=== PATIENT | female | born 1980 | race Two or more races ===

== ENCOUNTER 2016-12-07 11:59 | Emergency (ER) | payer OTHER ==
[~2016-12-07] VITALS: Ht 170.2 cm; Wt 68.0 kg
[~2016-12-07 11:59] MED LIST: FLUO40CA2 PO; LAMO200T4 PO
[2016-12-07] MEDS ORDERED: HYDROmorphone 1 MG/ML, 1ML ONE (12:14)
[2016-12-07] MEDS: HYDROmorphone 1 MG/ML, 1ML IVPush PRN ×3 (12:17→16:50)
[2016-12-07] MEDS ORDERED: ONDANSETRON 2MG/ML, 2ML IVPush ONE (12:30)
[2016-12-07] MEDS ORDERED: SODIUM CHLORIDE 0.9% 1,000ML IVBOLUS ONE (12:30)
[2016-12-07] MEDS ORDERED: SODIUM CHLORIDE FLUSH 10ML SYR IVF ONE (12:30)
[2016-12-07 12:47] LABS: HEMOGLOBIN 11.9 g/dL (11.7-16.4)
[2016-12-07] MEDS ORDERED: FLUO10CA13 PO (12:54)
[2016-12-07 13:01] LABS: BLOOD UREA NITROGEN 22 mg/dL (7-18)
[2016-12-07] MEDS ORDERED: SODIUM CHLORIDE 0.9%, 500ML IVBOLUS ONE ×2 (13:30→16:00)
[2016-12-07 15:43] LABS: HEMOGLOBIN 11.5 g/dL (11.7-16.4)
[2016-12-07 16:10] VITALS: BP 91/50
== END 2016-12-07 16:55 ==
LOC: ED 14:57
DX: O03.9 Complete or unspecified spontaneous abortion without complication (principal); I95.9 Hypotension, unspecified
CPT/HCPCS: 36415; 76856; 80048; 82040; 84702; 85025; 86901; 96361; 96374; 99285; J1170; J7030; J7040

== ENCOUNTER 2017-06-13 15:33 | Day surgery (SDC) | payer OTHER ==
[~2017-06-13] VITALS: Ht 171.4 cm; Wt 69.3 kg
[~2017-06-13 15:33] MED LIST changes: +FLUO10CA13 PO
[2017-06-13] MEDS ORDERED: LACTATED RINGERS 1,000 ML IV SCH (15:49)
[2017-06-13] MEDS ORDERED: PREN1COM15 PO (15:56)
[2017-06-13 15:59] VITALS: BP 104/62
[2017-06-13] MEDS ORDERED: PLEASE ENTER HEIGHT AND WEIGHT MC SCH (16:00)
[2017-06-13 16:17] LABS: HEMATOCRIT 41.1 % (34.6-47.8); WHITE BLOOD COUNT 9.7 x10^3/uL (3.4-10)
[2017-06-13 16:30] LABS: BLOOD UREA NITROGEN 12 mg/dL (7-18)
[2017-06-13] MEDS ORDERED: BUPIVACAINE/PF 0.25% ONE (16:31)
[2017-06-13] MEDS ORDERED: EPINEPHRINE 1 MG/ML, 1ML ONE (16:32)
[2017-06-13 16:33] LABS: ASPARTATE AMINO TRANSFERASE 16 U/L (15-37)
[2017-06-13 16:42] LABS: HCG UR LOT HCG7030192
[2017-06-13] MEDS ORDERED: MIDAZOLAM 1 MG/ML, 2ML ONE (16:42)
[2017-06-13] MEDS ORDERED: FENTANYL PF 100 MCG/2ML ONE ×3 (16:43→18:34)
[2017-06-13] MEDS ORDERED: LIDOCAINE-MPF 2% ,5ML ONE ×2 (16:44→17:46)
[2017-06-13] MEDS ORDERED: ROCURONIUM 10 MG/ML ONE ×2 (16:45)
[2017-06-13] MEDS ORDERED: KETOROLAC 30 MG/1 ML ONE (16:45)
[2017-06-13 17:02] LABS: HCG UR OBC PASS
[2017-06-13] MEDS ORDERED: CEFAZOLIN 1,000 MG ONE (17:06)
[2017-06-13] MEDS ORDERED: ONDANSETRON 2MG/ML, 2ML ONE (17:06)
[2017-06-13] MEDS ORDERED: SUCCINYLCHOLINE 20 MG/ML, 10ML ONE (17:06)
[2017-06-13] MEDS ORDERED: PROPOFOL 10 MG/ML, 20ML ONE (17:06)
[2017-06-13] MEDS ORDERED: GLYCOPYRROLATE 0.2MG/1ML, 5ML ONE (17:06)
[2017-06-13] MEDS ORDERED: NEOSTIGMINE 1 MG/ML, 10ML ONE (17:06)
[2017-06-13] MEDS ORDERED: DEXAMETHASONE 4 MG/ML, 1ML ONE (17:06)
[2017-06-13] MEDS ORDERED: EPHEDRINE 50 MG/ML, 1ML ONE (17:07)
[2017-06-13] MEDS ORDERED: MIDAZOLAM 1 MG/ML, 2ML IV PRN (17:30)
[2017-06-13] MEDS ORDERED: DIAZEPAM 5 MG/ML, 2ML IVPush PRN (17:30)
[2017-06-13] MEDS ORDERED: HYDROmorphone 1 MG/ML, 1ML IV PRN (17:30)
[2017-06-13] MEDS ORDERED: OXYcodone 5 MG/5 ML ORAL.SOL UDC PO PRN ×2 (17:30→21:00)
[2017-06-13] MEDS ORDERED: LABETALOL 5MG/ML, 20ML IV PRN (17:30)
[2017-06-13] MEDS ORDERED: LORazepam 2 MG/ML, 1ML IVPush PRN (17:30)
[2017-06-13] MEDS ORDERED: MEPERIDINE/PF 25MG/0.5ML IVPush PRN (17:30)
[2017-06-13] MEDS ORDERED: hydrALAzine 20 MG/ML, 1ML IV PRN (17:30)
[2017-06-13] MEDS ORDERED: ONDANSETRON 2MG/ML, 2ML IVPush PRN (17:30)
[2017-06-13] MEDS ORDERED: FENTANYL PF 100 MCG/2ML IV PRN (17:30)
[2017-06-13] MEDS ORDERED: EPHEDRINE 50 MG/ML, 1ML IVPush PRN (17:30)
[2017-06-13] MEDS ORDERED: ACETAMINOPHEN 325 MG TABLET PO PRN (17:30)
[2017-06-13] MEDS ORDERED: ALBUTEROL/IPRATROPIUM 2.5MG/0.5MG, 3 ML NPPB PRN (17:30)
[2017-06-13] MEDS ORDERED: PROMETHAZINE 25 MG/ML, 1ML IV PRN (17:30)
[2017-06-13] MEDS ORDERED: OXYcodone 5 MG/5 ML ORAL.SOL UDC ONE (18:34)
[2017-06-13] MEDS ORDERED: ACETAMINOPHEN 650 MG/20.3 ML UDC ONE (18:34)
[2017-06-13] MEDS ORDERED: OXYcodone/APAP 5/325MG TABLET PO PRN (21:00)
[2017-06-13] MEDS ORDERED: morphine SULFATE 10 MG/ML, 1ML IV PRN (21:00)
[2017-06-13] MEDS ORDERED: FLUOXETINE 10 MG CAP PO SCH (21:00)
[2017-06-13] MEDS ORDERED: IBUPROFEN 600 MG TABLET PO SCH (21:00)
[2017-06-14] MEDS ORDERED: OXYC-302 PO (08:32)
[2017-06-14] MEDS ORDERED: PRENATAL VIT/IRON/FA 1 EACH TABLET PO SCH (09:00)
== END 2017-06-13 23:40 | disposition home or self-care (01) ==
LOC: OR 15:33 → MERGE 18:00 → 4NOR 19:42 → OR 23:40
PROVIDERS: ATTEND Obstetrics & Gynecology
DX: O00.102 Left tubal pregnancy without intrauterine pregnancy (principal); N83.201 Unspecified ovarian cyst, right side
CPT/HCPCS: 36415; 59151; 80053; 81025; 85025; 86850; 86900; 88302; J0171; J0330; J0690; J1100; J1885; J2250; J2405; J2704; J2710; J3010; J3490

== ENCOUNTER 2018-07-01 20:07 | Emergency (ER) | payer OTHER ==
[~2018-07-01] VITALS: Ht 167.6 cm; Wt 73.9 kg
[~2018-07-01 20:07] MED LIST changes: +OXYC-302 PO; +PREN1COM15 PO
[2018-07-01 20:09] VITALS: BP 123/48
[2018-07-01 20:28] LABS: BASOPHILS # (AUTO) 0.03 x10^3/uL (0-0.1); BASOPHILS % (AUTO) 0 % (0-1); EOSINOPHILS # (AUTO) 0.11 x10^3/uL (0-0.4); EOSINOPHILS % (AUTO) 1 % (1-7); LYMPHOCYTES # (AUTO) 2.45 x10^3/uL (1-3.4); LYMPHOCYTES % (AUTO) 18 % (22-44); MD NO; MEAN CORPUSCULAR HEMOGLOBIN 31.7 pg (27.0-34.8); MEAN CORPUSCULAR VOLUME 93.1 fL (80-100); MEAN PLATELET VOLUME 8.6 fL (7.4-10.4); MONOCYTES # (AUTO) 0.69 x10^3/uL (0.2-0.8); MONOCYTES % (AUTO) 5 % (2-9); NEUTROPHILS # (AUTO) 10.51 x10^3/uL (1.8-6.8); NEUTROPHILS % (AUTO) 76 % (42-75); PLATELET COUNT 305 x10^3/uL (130-400); RED BLOOD COUNT 4.14 x10^6/uL (3.82-5.3)
[2018-07-01 20:39] LABS: ALBUMIN 3.7 g/dL (3.4-5.0); ANION GAP 10 mmol/L (5-15); CALCIUM 8.8 mg/dL (8.5-10.1); CHLORIDE 104 mmol/L (98-107); CREATININE 0.66 mg/dL (0.55-1.02)
== END 2018-07-01 21:52 | disposition home or self-care (01) ==
LOC: ED 21:48
DX: O20.0 Threatened abortion (principal); Z3A.13 13 weeks gestation of pregnancy
CPT/HCPCS: 36415; 76801; 80048; 82040; 84702; 85025; 86901; 99285

== ENCOUNTER 2019-01-01 21:45 | Outpatient (CLI) | payer OTHER ==
[~2019-01-01] VITALS: Ht 170.2 cm; Wt 86.0 kg
[2019-01-02] MEDS ORDERED: DOCO100C PO (08:33)
[2019-01-02] MEDS ORDERED: VALA500T4 PO (08:33)
== END 2019-01-01 23:22 | disposition home or self-care (01) ==
LOC: LDOP 21:45
PROVIDERS: ATTEND Obstetrics & Gynecology
DX: O46.93 Antepartum hemorrhage, unspecified, third trimester (principal); Z3A.38 38 weeks gestation of pregnancy
CPT/HCPCS: 59025; 99211; G0463

== ENCOUNTER 2019-01-02 03:34 | Inpatient (IN) | payer OTHER ==
[~2019-01-02] VITALS: Ht 170.2 cm; Wt 85.5 kg
[2019-01-02] MEDS ORDERED: D5%-LACTATED RINGERS 1,000 ML IV SCH (03:42)
[2019-01-02] MEDS ORDERED: OXYTOCIN 30U/ 0.9% NaCL 500ML 500 ML IV ONE (03:42)
[2019-01-02] MEDS: FENTANYL/BUPIV./NS/PF 250 ML EPIDCONT SCH (03:44)
[2019-01-02] MEDS ORDERED: FENTANYL PF 100 MCG/2ML ONE ×2 (03:51→13:03)
[2019-01-02] MEDS ORDERED: OXYTOCIN 30U/ 0.9% NaCL 500ML 500 ML ONE (03:51)
[2019-01-02] MEDS ORDERED: MISOPROSTOL 200 MCG TABLET ONE (03:51)
[2019-01-02] MEDS ORDERED: NEWBORN KIT ONE (03:51)
[2019-01-02] MEDS ORDERED: LIDOCAINE 1%, 20ML ONE (03:51)
[2019-01-02] MEDS: LACTATED RINGERS 1,000 ML IV SCH ×9 (03:55→23:07)
[2019-01-02 04:00] LABS: BASOPHILS # (AUTO) 0.05 x10^3/uL (0-0.1); BASOPHILS % (AUTO) 0 % (0-1); EOSINOPHILS # (AUTO) 0.08 x10^3/uL (0-0.4); EOSINOPHILS % (AUTO) 1 % (1-7); LYMPHOCYTES # (AUTO) 2.01 x10^3/uL (1-3.4); LYMPHOCYTES % (AUTO) 14 % (22-44); MD NO; MEAN CORPUSCULAR HEMOGLOBIN 31.8 pg (27.0-34.8); MEAN CORPUSCULAR HGB CONC 33.8 g/dL (32.4-35.8); MEAN CORPUSCULAR VOLUME 94.2 fL (80-100); MEAN PLATELET VOLUME 9.9 fL (7.4-10.4); MONOCYTES # (AUTO) 0.88 x10^3/uL (0.2-0.8); MONOCYTES % (AUTO) 6 % (2-9); NEUTROPHILS # (AUTO) 11.55 x10^3/uL (1.8-6.8); NEUTROPHILS % (AUTO) 79 % (42-75); PLATELET COUNT 291 x10^3/uL (130-400); RED BLOOD COUNT 3.95 x10^6/uL (3.82-5.3); RED CELL DISTRIBUTION WIDTH 14.9 % (9.6-15.2)
[2019-01-02] MEDS ORDERED: ALUMINUM/MAG/SIMETHICONE 30 ML UDC PO PRN (04:00)
[2019-01-02] MEDS ORDERED: FENTANYL PF 100 MCG/2ML IV PRN (04:00)
[2019-01-02] MEDS ORDERED: CALCIUM CARBONATE 500 MG TAB.CHEW PO PRN (04:00)
[2019-01-02] MEDS ORDERED: FENTANYL PF 500 MCG, BUPIVACAINE/PF 0.5%, 30ML 62.5 ML in SODIUM CHLORIDE 0.9% 177.5 ML EPIDCONT SCH (04:00)
[2019-01-02] MEDS ORDERED: METOCLOPRAMIDE 5 MG/ML, 2ML IVPush PRN (04:00)
[2019-01-02] MEDS ORDERED: SODIUM CITRATE/CITRIC ACID 15 ML UDC PO PRN (04:00)
[2019-01-02] MEDS ORDERED: TERBUTALINE 1 MG/ML, 1ML IVPush PRN (04:00)
[2019-01-02] MEDS ORDERED: SODIUM CHLORIDE FLUSH 10ML SYR IVF PRN (04:00)
[2019-01-02] MEDS ORDERED: ONDANSETRON 2MG/ML, 2ML IVPush PRN (04:00)
[2019-01-02] MEDS ORDERED: TERBUTALINE 1 MG/ML, 1ML SQ PRN (04:00)
[2019-01-02] MEDS ORDERED: FENTANYL PF 100 MCG/2ML IVPush PRN (04:00)
[2019-01-02] MEDS ORDERED: FENTANYL/BUPIV./NS/PF 250 ML EPIDCONT SCH (04:20)
[2019-01-02] MEDS ORDERED: BUPIVACAINE 0.25% ONE (04:22)
[2019-01-02] MEDS ORDERED: LACTATED RINGERS 1,000 ML IVBOLUS PRN (04:30)
[2019-01-02] MEDS ORDERED: EPHEDRINE 50 MG/ML, 1ML IVPush PRN (04:30)
[2019-01-02] MEDS ORDERED: NALOXONE 0.4 MG/ML, 1ML IVPush PRN (04:30)
[2019-01-02] MEDS ORDERED: EPHEDRINE 50 MG/ML, 1ML ONE (05:13)
[2019-01-02 07:59] VITALS: BP 101/53
[2019-01-02] MEDS ORDERED: VALA500T4 PO (08:33)
[2019-01-02] MEDS ORDERED: DOCO100C PO (08:33)
[2019-01-02] MEDS ORDERED: TERBUTALINE 1 MG/ML, 1ML ONE (10:18)
[2019-01-02] MEDS: LACTATED RINGERS 1,000 ML INTUTE PRN ×2 (10:20→12:32)
[2019-01-02] MEDS ORDERED: LACTATED RINGERS 1,000 ML INTUTE SCH (10:30)
[2019-01-02] MEDS ORDERED: METOCLOPRAMIDE 5 MG/ML, 2ML ONE (12:47)
[2019-01-02] MEDS ORDERED: SODIUM CITRATE/CITRIC ACID 15 ML UDC ONE ×2 (12:47→13:04)
[2019-01-02] MEDS ORDERED: ONDANSETRON 2MG/ML, 2ML ONE (13:03)
[2019-01-02] MEDS ORDERED: CEFAZOLIN 1,000 MG ONE (13:03)
[2019-01-02] MEDS ORDERED: OXYTOCIN 10 UNITS/ML, 1ML ONE (13:03)
[2019-01-02] MEDS ORDERED: HYDROmorphone 2 MG/ML, 1ML ONE (13:03)
[2019-01-02] MEDS ORDERED: LIDOCAINE-MPF 2% ,5ML ONE ×2 (13:04)
[2019-01-02] MEDS: OXYTOCIN 30U/ 0.9% NaCL 500ML 500 ML IV SCH ×2 (13:07→23:07)
[2019-01-02] MEDS ORDERED: IBUPROFEN 600 MG TABLET PO PRN (13:30)
[2019-01-02] MEDS ORDERED: ACETAMINOPHEN 325 MG TABLET PO PRN (13:30)
[2019-01-02] MEDS ORDERED: MISOPROSTOL 200 MCG TABLET PR PRN (13:30)
[2019-01-02] MEDS ORDERED: OXYcodone/APAP 5/325MG TABLET PO PRN (13:30)
[2019-01-02] MEDS ORDERED: METHYLERGONOVINE 0.2 MG/ML IM PRN (13:30)
[2019-01-02] MEDS ORDERED: morphine SULFATE 10 MG/ML, 1ML IM PRN (13:30)
[2019-01-02] MEDS ORDERED: METOCLOPRAMIDE 5 MG/ML, 2ML IV PRN (13:30)
[2019-01-02] MEDS ORDERED: CARBOPROST TROMETHAMINE 250 MCG/ML, 1ML IM PRN (13:30)
[2019-01-02] MEDS ORDERED: ONDANSETRON 2MG/ML, 2ML IV PRN (13:30)
[2019-01-02] MEDS ORDERED: KETOROLAC 30 MG/1 ML ONE (15:15)
[2019-01-02] MEDS: KETOROLAC 30 MG/1 ML IV SCH ×2 (15:18→21:40)
[2019-01-02] MEDS ORDERED: OXYcodone 5 MG/5 ML ORAL.SOL UDC ONE (15:44)
[2019-01-02] MEDS ORDERED: OXYcodone 5 MG/5 ML ORAL.SOL UDC PO PRN (16:00)
[2019-01-02 16:50] VITALS: BP 90/58
[2019-01-02] MEDS: OXYcodone/APAP 5/325MG TABLET PO PRN (19:59)
[2019-01-02] MEDS: DOCUSATE 100 MG CAPSULE PO PRN (19:59)
[2019-01-02 20:00] VITALS: BP 113/70
[2019-01-02 21:30] LABS: MEAN CORPUSCULAR HEMOGLOBIN 32.3 pg (27.0-34.8); MEAN CORPUSCULAR HGB CONC 34.1 g/dL (32.4-35.8); MEAN CORPUSCULAR VOLUME 94.6 fL (80-100); PLATELET COUNT 253 x10^3/uL (130-400); RED BLOOD COUNT 3.47 x10^6/uL (3.82-5.3); RED CELL DISTRIBUTION WIDTH 14.9 % (9.6-15.2)
[2019-01-02 21:43] LABS: BASOPHILS # (AUTO) 0.01 x10^3/uL (0-0.1); BASOPHILS % (AUTO) 0 % (0-1); EOSINOPHILS % (AUTO) 0 % (1-7); LYMPHOCYTES # (AUTO) 1.28 x10^3/uL (1-3.4); LYMPHOCYTES % (AUTO) 5 % (22-44); MD SCAN; MONOCYTES # (AUTO) 0.96 x10^3/uL (0.2-0.8); MONOCYTES % (AUTO) 4 % (2-9); NEUTROPHILS # (AUTO) 22.64 x10^3/uL (1.8-6.8); NEUTROPHILS % (AUTO) 91 % (42-75)
[2019-01-03] VITALS: BP 105/64
[2019-01-03] MEDS: OXYcodone/APAP 5/325MG TABLET PO PRN ×3 (01:34→16:56)
[2019-01-03] MEDS: KETOROLAC 30 MG/1 ML IV SCH ×4 (03:24→22:30)
[2019-01-03] MEDS: FENTANYL/BUPIV./NS/PF 250 ML EPIDCONT SCH (03:44)
[2019-01-03 04:00] VITALS: BP 95/63
[2019-01-03] MEDS: LACTATED RINGERS 1,000 ML IV SCH ×5 (05:07→21:07)
[2019-01-03 07:45] VITALS: BP 126/70
[2019-01-03] MEDS: OXYTOCIN 30U/ 0.9% NaCL 500ML 500 ML IV SCH ×2 (07:49→19:07)
[2019-01-03] MEDS: DOCUSATE 100 MG CAPSULE PO PRN ×2 (07:51→22:30)
[2019-01-03] MEDS: PRENATAL VIT/IRON/FA 1 EACH TABLET PO SCH (07:51)
[2019-01-03] MEDS: FLUOXETINE HCL 20 MG CAPSULE PO SCH (09:56)
[2019-01-03] MEDS: VALACYCLOVIR 500MG TABLET PO SCH ×2 (09:56→22:30)
[2019-01-03 13:22] VITALS: BP 124/72
[2019-01-03 20:10] VITALS: BP 100/66
[2019-01-04] MEDS: FENTANYL/BUPIV./NS/PF 250 ML EPIDCONT SCH (03:44)
[2019-01-04] MEDS: KETOROLAC 30 MG/1 ML IV SCH ×2 (04:06→09:30)
[2019-01-04] MEDS: OXYTOCIN 30U/ 0.9% NaCL 500ML 500 ML IV SCH (05:07)
[2019-01-04] MEDS: LACTATED RINGERS 1,000 ML IV SCH ×2 (05:07)
[2019-01-04] MEDS: PRENATAL VIT/IRON/FA 1 EACH TABLET PO SCH (09:49)
[2019-01-04] MEDS: VALACYCLOVIR 500MG TABLET PO SCH (09:49)
[2019-01-04] MEDS: DOCUSATE 100 MG CAPSULE PO PRN (09:49)
[2019-01-04] MEDS: FLUOXETINE HCL 20 MG CAPSULE PO SCH (09:49)
[2019-01-04 09:55] VITALS: BP 116/66
[2019-01-04] MEDS ORDERED: DOCU-131 PO (10:19)
[2019-01-04] MEDS ORDERED: OXYC-302 PO (10:19)
[2019-01-04] MEDS ORDERED: IBUP-1222 PO (10:19)
[2019-01-04] MEDS ORDERED: FLUO40CA9 PO (10:21)
== END 2019-01-04 11:30 | disposition home or self-care (01) | DRG 788 ==
LOC: LDOP 03:34 → LDIP 03:53 → 2NW 16:04
PROVIDERS: ADMIT Obstetrics & Gynecology; ATTEND Obstetrics & Gynecology
PROC: 10D00Z1 Extraction of Products of Conception, Low, Open Approach (ICD-10-PCS; principal; 2019-01-02)
DX: O76 Abnormality in fetal heart rate and rhythm complicating labor and delivery (principal); O99.344 Other mental disorders complicating childbirth; F32.9 Major depressive disorder, single episode, unspecified; O77.0 Labor and delivery complicated by meconium in amniotic fluid; Z37.0 Single live birth; Z3A.39 39 weeks gestation of pregnancy; Z90.79 Acquired absence of other genital organ(s)
CPT/HCPCS: 36415; J3490; J7121; 82803; 85025; 86850; 86900; G0378; J0690; J1170; J1885; J2405; J3010; J2590; J2765; J3105; J7120

== ENCOUNTER 2021-01-04 13:09 | Emergency (ER) | payer OTHER ==
[~2021-01-04] VITALS: Ht 167.6 cm; Wt 65.4 kg
[~2021-01-04 13:09] MED LIST changes: +DOCO100C PO; +DOCU-131 PO; +FLUO40CA9 PO; +IBUP-1222 PO; -OXYC-302 PO; +OXYC1TAB14 PO; +VALA500T4 PO
--- NOTE | 2021-01-04 13:49 | NUR ---
PT BIB SELF VIA POV. PER PT SHE HAS HAD PAIN BEHIND RIGHT KNEE X1 HOUR, PT STATES SHE THINKS IT IS A BLOOD CLOT. PT DENIES BLOOD THINNERS OR CONTROL, PT DOES NOT SMOKE. PT ALSO STATES SHE HAD SIMILAR PAIN APPROX 7 YEARS AGO AFTER A LONG FLIGHT, BUT WAS NOT SEEN BY A PROVIDER. PT STATES WHEN WALKING OR USING HER LEG SHE HAS 10/10 PAIN. NO SWELLING OR EDEMA PRESENT. DR. KELLEY AT BEDSIDE FOR EVALUATION, PT RESTING IN [facility], MONITORING IN PLACE, NADN AT THIS TIME, PER PT NO NEEDS, WCTM.
[2021-01-04 15:55] VITALS: BP 107/50
== END 2021-01-04 16:36 | disposition home or self-care (01) ==
LOC: ED 15:03
DX: M25.561 Pain in right knee (principal); M79.661 Pain in right lower leg; I95.9 Hypotension, unspecified
CPT/HCPCS: 99284